=== PATIENT | female | born 1930 | race Caucasian/White ===

== ENCOUNTER 2017-08-25 10:05 | Emergency (ER) | payer MEDICARE ==
--- NOTE | 2017-08-25 10:08 | ED Physician Documentation ---
General Adult - HISTORIAN Historian: patient - HPI Stated Complaint: via ambulance for confusion and possible UTI Chief Complaint: Altered Mental Status Onset: hours (4) Timing: other (pt is still confused) Severity: other (KILLIAN ) Further Comments: no Last known Well Date: 08/25/17 Last Known Well Time: 09:00 Last known Well Code/Unknown Code: Unknown - ROS CONST: other (none mentioned in report ) EYES/ENT: none CVS/RESP: none GI/: none MS/SKIN/LYMPH: other (bilateral lower legs red ) NEURO/PSYCH: other (none given in report - pt not able to communicate ) - PAST HX Past History: other (HTN, PLT disorder ) Other History: other (according to med list : CHF, HTN, Cellulitis, pressure ulcer ) Surgeries/Procedures: other (KILLIAN ) Immunizations: referred to PCP Allergies/Adverse Reactions: Allergies Allergy/AdvReac Type Severity Reaction Status Date / Time Penicillins Allergy Intermediate Rash Verified 08/25/17 11:30 Home Medications: Ambulatory Orders Medication Instructions Recorded Acetaminophen [Tylenol] 650 mg PO Q6 02/04/14 Aspirin [Sara] 81 mg PO D 03/27/16 Melatonin 5 mg PO HS 03/27/16 Ranitidine HCl 150 mg PO BID 03/27/16 Levofloxacin [Levaquin] 250 mg PO DAILY #10 tablet 07/02/16 Metoprolol Tartrate [Lopressor] 12.5 mg PO BID #30 tablet 07/02/16 - SOCIAL HX Smoking History: non-smoker - FAMILY HX Family History: No - VITAL SIGNS Vital Signs: Vital Signs Temp Pulse Resp BP Pulse Ox 133/58 07/02/16 13:01 - REVIEWED ASSESSMENTS Nursing Assessment Reviewed: Yes Vitals Reviewed: Yes Progress - Progress Progress: 1304: Resting quietly - no distress noted DG General Adult Physical Exam - PHYSICAL EXAM GENERAL APPEARANCE: no distress NECK: normal inspection RESPIRATORY: no resp distress CVS: reg rate & rhythm, other (irregular ) ABDOMEN: soft, no organomegaly, normal bowel sounds SKIN: other (open area on base of spine no redness or drainage present ) EXTREMITIES: edema, tenderness, other (redness bilateral lower legs ) NEURO: disoriented Discharge Clincal Impression: UTI (urinary tract infection) Qualifiers: Urinary tract infection type: site unspecified Hematuria presence: without hematuria Qualified Code(s): N39.0 - Urinary tract infection, site not specified Referrals: Terrell Hays MD [Primary Care Provider] - 2 Days Comments: Discussed with Dr Hays Discontinue Metoprolol Start Cipro after IV dose Cipro 500 mg BID x 7 days Condition: Stable Disposition: 04 [facility] Decision to Admit: NO Date of Decison to Admit: 08/25/17 Decision Time: 13:05
[2017-08-25] MEDS ORDERED: 0.9 % SODIUM CHLORIDE 1,000 ML IV ONE (10:10)
[2017-08-25 10:37] LABS: BASOPHILS % 0.7 (0.0-1.5); EOSINOPHILS % 2.3 % (0.0-6.8); MEAN CORPUSCULAR HEMOGLOBIN 32.1 pg (28.0-34.0); MEAN CORPUSCULAR VOLUME 95.4 fl (80.0-100.0); NEUTROPHILS # 8.1 # k/uL (1.4-7.7)
[2017-08-25 10:38] LABS: COLOR,URINE Yellow (YELLOW); OCCULT BLOOD,URINE 1+ (NEGATIVE); UROBILINOGEN URINE 0.2 Eu (0.2-1.0)
[2017-08-25 10:45] LABS: APPEARANCE,URINE CLOUDY (CLEAR)
[2017-08-25 10:50] LABS: eGFR (African) > 60; eGFR (Non-African) 41
[2017-08-25] MEDS ORDERED: CIPROFLOXACIN/D5W 400 MG in PREMIX BAG 1 BAG IV ONE (10:59)
[2017-08-25] MEDS ORDERED: CIPROFLOXACIN/D5W 200 ML IV ONE (11:07)
[2017-08-25 14:10] VITALS: BP 100/41
== END 2017-08-25 13:57 ==
LOC: ED 10:05
DX: N39.0 Urinary tract infection, site not specified (principal)
CPT/HCPCS: 80053; 81002; 85025; 87086; 87186; J0744; J7030; 96361; 96365; 99284; S1016

== ENCOUNTER 2017-11-27 09:31 | Emergency (ER) | payer BC, MEDICARE ==
--- NOTE | 2017-11-27 09:35 | ED Physician Documentation ---
General Adult - HISTORIAN Historian: patient - HPI Stated Complaint: chest pain Chief Complaint: Chest Pain Onset: hours (1) Timing: better (denies chest pain currently . ) Severity: mild Further Comments: yes (She does report that she has "all this spit" she is coughing up clear mucus. She denies any abdominal pain . she reported to her staff (per the staff) at the [facility] that she has chest pain. She was not noted to have any other complaints at that time. She is being treated for cellulitis as per her chart.) Last known Well Code/Unknown Code: Unknown - ROS CONST: recent illness (cellulitis ) EYES/ENT: denies: nasal drainage CVS/RESP: chest pain, cough MS/SKIN/LYMPH: leg swelling (redness on right lower leg ) NEURO/PSYCH: denies: headache, fainting, dizziness - PAST HX Past History: other (HTN, reflux, cellultis, dementia ) Surgeries/Procedures: other Immunizations: UTD Allergies/Adverse Reactions: Allergies Allergy/AdvReac Type Severity Reaction Status Date / Time Penicillins Allergy Intermediate Rash Verified 08/25/17 11:30 Home Medications: Ambulatory Orders Medication Instructions Recorded Acetaminophen [Tylenol] 650 mg PO Q6 02/04/14 Aspirin [Sara] 81 mg PO D 03/27/16 Melatonin 5 mg PO HS 03/27/16 Ranitidine HCl 150 mg PO BID 03/27/16 Levofloxacin [Levaquin] 250 mg PO DAILY #10 tablet 07/02/16 Metoprolol Tartrate [Lopressor] 12.5 mg PO BID #30 tablet 07/02/16 - SOCIAL HX Smoking History: non-smoker Alcohol Use: none Drug Use: none - FAMILY HX Family History: No - VITAL SIGNS Vital Signs: Vital Signs Temp Pulse Resp BP Pulse Ox 100/41 08/25/17 13:57 - REVIEWED ASSESSMENTS Nursing Assessment Reviewed: Yes Vitals Reviewed: Yes ED Results Lab/Radiology - Radiology Radiology Impressions: Examination: Portable chest History: Evaluate lungs. Chest discomfort. Comparison exam: None available for direct review Findings: Single view of the chest demonstrates a hypoventilated inspiratory effort resulting in crowding of the cardiac and mediastinal silhouette. Vascular calcifications involving the aortic arch. Prominent hilar interstitium. Mild blunting of the left costophrenic margin. Osseous structures demonstrate articular degenerative changes. Impression: Poor inspiratory effort. Vascular crowding versus mild infiltrate involving the perihilar regions. Possible small left base effusion. Electronically signed on Nov 27, 2017 10:33:49 AM CAPONIZER by: Vito Solorzano General Adult Physical Exam - PHYSICAL EXAM GENERAL APPEARANCE: mild distress EENT: eye inspection normal NECK: normal inspection RESPIRATORY: no resp distress, chest non-tender, breath sounds normal CVS: reg rate & rhythm, heart sounds normal, no murmur ABDOMEN: soft, normal bowel sounds, no distension, non-tender SKIN: warm/dry, other (bilateral lower legs with redness and edema (2+)) EXTREMITIES: non-tender NEURO: oriented X3, CN's nml as tested, motor nml, sensation nml Discharge Clincal Impression: Pneumonia Qualifiers: Pneumonia type: due to unspecified organism Laterality: left Lung location: lower lobe of lung Qualified Code(s): J18.1 - Lobar pneumonia, unspecified organism Referrals: Terrell Hays MD [Primary Care Provider] - 2 Days Comments: Meds Keep head of bed elevated Give Zofran as needed pre order Increase fluids Return to ER for any concerns Condition: Stable Disposition: 01 HOME, SELF-CARE Decision to Admit: NO Date of Decison to Admit: 11/27/17 Decision Time: 10:46
[2017-11-27] MEDS ORDERED: ONDANSETRON HCL/PF 4 MG/ 2ML VIAL ONE (09:42)
[2017-11-27] MEDS ORDERED: FAMOTIDINE/PF 20 MG/2 ML VIAL ONE (09:42)
[2017-11-27] MEDS ORDERED: ASPIRIN 81 MG CHEW TAB PO ONE (09:43)
[2017-11-27] MEDS ORDERED: FAMOTIDINE/PF 20 MG/2 ML VIAL IVP ONE (09:44)
[2017-11-27] MEDS ORDERED: ONDANSETRON HCL/PF 4 MG/ 2ML VIAL IVP ONE (09:44)
[2017-11-27 09:52] LABS: EOSINOPHILS % 5.8 % (0.0-6.8); MEAN CORPUSCULAR HEMOGLOBIN 33.1 pg (28.0-34.0); MEAN CORPUSCULAR VOLUME 96.5 fl (80.0-100.0); NEUTROPHILS # 3.2 # k/uL (1.4-7.7)
[2017-11-27 10:01] LABS: eGFR (African) > 60; eGFR (Non-African) 41
[2017-11-27 12:01] VITALS: BP 120/68
--- NOTE | 2017-11-27 17:58 | Diagnostic Imaging Report ---
ADA BRADLEY [facility] [id number] [facility] [address] [place], [place]. [address] Report Submission Date: Nov 27, 2017 10:33:49 AM MANAGER ORACLE Patient Study Name: DAMI CAMARENA Date: Nov 27, 2017 10:15:36 AM MANAGER ORACLE Modality Type: CR Gender: F Description: CHEST : 32 Institution: [facility] Physician: ADA BRADLEY Examination: Portable chest History: Evaluate lungs. Chest discomfort. Comparison exam: None available for direct review Findings: Single view of the chest demonstrates a hypoventilated inspiratory effort resulting in crowding of the cardiac and mediastinal silhouette. Vascular calcifications involving the aortic arch. Prominent hilar interstitium. Mild blunting of the left costophrenic margin. Osseous structures demonstrate articular degenerative changes. Impression: Poor inspiratory effort. Vascular crowding versus mild infiltrate involving the perihilar regions. Possible small left base effusion. Electronically signed on Nov 27, 2017 10:33:49 AM MANAGER ORACLE by: Vito LITTLE
== END 2017-11-27 11:50 | disposition home or self-care (01) ==
LOC: ED 09:31
DX: J18.1 Lobar pneumonia, unspecified organism (principal)
CPT/HCPCS: 71010; 80053; 82550; 82553; 83880; 84484; 85025; 93005; J2405; 96374; 96375; 99283; S0028

== ENCOUNTER 2018-09-02 12:58 | Emergency (ER) | payer MEDICARE ==
[2018-09-02] MEDS ORDERED: 0.9 % SODIUM CHLORIDE 500 ML IV ONE (13:33)
[2018-09-02] MEDS ORDERED: CIPROFLOXACIN HCL 500 MG TABLET PO ONE (13:36)
--- NOTE | 2018-09-02 13:45 | ED Physician Documentation ---
General Adult - HPI Stated Complaint: burning with urination t Chief Complaint: Female Urogenital Problems Additional Information: Intro self as [employer]. Pt presents to the ED via POV with Nursing staff. Pt was sent by Dr Hays PCP for labs showing Dehydration and decreased oral intake since yesterday. pt reports she does not like the food. pt has hx of dementia and is from an NH Pt reports burning and frequency with urination. pt denies current chest pain, dyspnea, syncope/near syncope, headache, dizziness, visual disturbances, n/v/d, fever, rash, sick contacts, trauma. melena or hematochezia, function. anxiety or depression. ROS limited due to pt dementia. pt at baseline per NH staff. Onset: hours Timing: still present - ROS CONST: weight loss EYES/ENT: none. denies: sore throat, nasal drainage CVS/RESP: denies: chest pain, shortness of breath, cough GI/: problems urinating. denies: abdominal pain, vomiting, nausea NEURO/PSYCH: denies: headache, fainting, dizziness - PAST HX Past History: other (TIA, OA, Cellluitis-resolved) Allergies/Adverse Reactions: Allergies Allergy/AdvReac Type Severity Reaction Status Date / Time Penicillins Allergy Intermediate Rash Verified 09/02/18 14:19 Penicillins Allergy Unknown Uncoded 10/13/12 15:35 Home Medications: Ambulatory Orders Medication Instructions Recorded Acetaminophen [Tylenol] 650 mg PO Q6 02/04/14 Aspirin [Sara] 81 mg PO D 03/27/16 Melatonin 5 mg PO HS 03/27/16 Ranitidine HCl 150 mg PO BID 03/27/16 - SOCIAL HX Smoking History: non-smoker - FAMILY HX Family History: No (DEBORAH) - VITAL SIGNS Vital Signs: Vital Signs Temp Pulse Resp BP Pulse Ox 97.6 F 66 16 106/58 94 09/02/18 13:23 09/02/18 13:23 09/02/18 13:23 09/02/18 13:23 09/02/18 13:23 - REVIEWED ASSESSMENTS Nursing Assessment Reviewed: Yes Vitals Reviewed: Yes ED Results Lab/Radiology - Orders Orders: ED Orders Category Date Time Status Continuous EKG monitoring Q30M Care 09/02/18 13:23 Active Continuous Pulse Oximetry Q30M Care 09/02/18 13:[address] IV Lock 1T Care 09/02/18 13:23 Active CBC/PLATELET/DIFF Routine Lab 09/02/18 13:23 Ordered CMP Routine Lab 09/02/18 13:23 Ordered 0.9 % Sodium Chloride [Normal Saline] 500 ml Med 09/02/18 13:33 Active IV NOW Ciprofloxacin HCl [Cipro] Med 09/02/18 13:36 Once 500 mg PO NOW ONE General Adult Physical Exam - PHYSICAL EXAM GENERAL APPEARANCE: thin EENT: ENT inspection normal, TRISTA, dry mucous membranes NECK: normal inspection. No: lymphadenopathy RESPIRATORY: no resp distress, other (diminished ). No: wheezes, rales, rhonchi CVS: reg rate & rhythm, heart sounds normal ABDOMEN: soft, normal bowel sounds, no distension, non-tender BACK: normal inspection SKIN: warm/dry, normal color NEURO: motor nml, sensation nml, mood/affect nml, cognition normal (at baseline person place) Discharge Clincal Impression: Dehydration UTI (urinary tract infection) Qualifiers: Urinary tract infection type: site unspecified Hematuria presence: with hematuria Qualified Code(s): N39.0 - Urinary tract infection, site not specified Referrals: Terrell Hays MD [Primary Care Provider] - 2 Days Comments: Cipro 500 mg twice a day for 7 days. Return if worse: Chest pain, shortness of breath, feeling faint or passing out, uncontrollable fever after tylenol or motrin, unable to keep down fluids. Repeat UA in 7 days with results to Dr Hays. mildly increase hydration, encourage drinks/snacks pt enjoys. Condition: Good Disposition: 01 HOME, SELF-CARE Palliative/Comfort Care: Palliative Care Decision to Admit: NO Date of Decison to Admit: 09/02/18 Decision Time: 14:46
[2018-09-02 14:14] LABS: BASOPHILS % 0.2 (0.0-1.5); EOSINOPHILS % 3.1 % (0.0-6.8); MEAN CORPUSCULAR HEMOGLOBIN 32.8 pg (28.0-34.0); NEUTROPHILS # 3.5 # k/uL (1.4-7.7)
[2018-09-02] MEDS ORDERED: POTASSIUM CHLORIDE 20 MEQ TABLET.ER PO ONE (14:34)
[2018-09-02] MEDS ORDERED: POTASSIUM CHLORIDE 20 MEQ TABLET.ER ONE (14:35)
[2018-09-02 14:49] VITALS: BP 116/70
[2018-09-02 17:14] LABS: APPEARANCE,URINE CLOUDY (CLEAR); COLOR,URINE YELLOW (YELLOW); OCCULT BLOOD,URINE 1+ (NEGATIVE); PH URINE 5.5 (5.0 - 8.0); UROBILINOGEN URINE 0.2 Eu (0.2-1.0)
== END 2018-09-02 14:45 | disposition home or self-care (01) ==
LOC: ED 12:58
DX: E86.0 Dehydration (principal); N39.0 Urinary tract infection, site not specified
CPT/HCPCS: 80053; 81002; 85025; 87086; 87186; A9270; J7060; 99283; S1016